=== PATIENT | male | born 1955 | race Caucasian/White ===

== ENCOUNTER 2016-11-28 16:15 | Emergency (ER) | payer OTHER ==
[~2016-11-28] VITALS: Ht 175.3 cm; Wt 79.5 kg
[2016-11-28 16:19] VITALS: BP 99/69
[2016-11-28] MEDS ORDERED: KEFLEX500 MG PO (18:21)
[2016-11-28] MEDS ORDERED: PERCOCET 5/31 TABLET PO (18:22)
== END 2016-11-28 18:53 | disposition home or self-care (01) ==
LOC: EME 16:15
PROC: 0HQGXZZ Repair Left Hand Skin, External Approach (ICD-10-PCS; principal; 2016-11-28)
DX: S62.522B Displaced fracture of distal phalanx of left thumb, initial encounter for open fracture (principal); W31.2XXA Contact with powered woodworking and forming machines, initial encounter; Z87.891 Personal history of nicotine dependence
CPT/HCPCS: 73130; 99281; 99284; S0020